=== PATIENT | male | born 1980 | race Two or more races ===

== ENCOUNTER 2016-11-07 20:21 | Emergency (ER) | payer SELFPAY ==
[~2016-11-07] VITALS: Ht 175.3 cm; Wt 127.0 kg
[2016-11-07] MEDS ORDERED: cloNIDine HCL 0.1 MG TAB ONE (20:27)
[2016-11-07] MEDS ORDERED: cloNIDine HCL 0.1 MG TAB PO ONE (20:45)
[2016-11-07 23:56] VITALS: BP 145/94
[2016-11-08] MEDS ORDERED: IBUPROFEN 600 MG TAB PO ONE
[2016-11-08] MEDS ORDERED: CYCLOBENZAPRINE HCL 10 MG TAB PO ONE
== END 2016-11-08 00:38 | disposition home or self-care (01) ==
LOC: EDBD 20:21 → ER 20:25
DX: S40.012A Contusion of left shoulder, initial encounter (principal); R51 Headache; V49.49XA Driver injured in collision with other motor vehicles in traffic accident, initial encounter; Y93.89 Activity, other specified; Y99.8 Other external cause status; Y92.410 Unspecified street and highway as the place of occurrence of the external cause
CPT/HCPCS: 70450; 72125; 73030

== ENCOUNTER 2018-05-04 17:04 | Emergency (ER) | payer BC, OTHER ==
[~2018-05-04] VITALS: Ht 177.8 cm; Wt 136.1 kg
[2018-05-04] MEDS ORDERED: BACLOFEN 10 MG TAB PO ONE (19:15)
[2018-05-04 19:25] VITALS: BP 168/84
[2018-05-04] MEDS ORDERED: HYDROcodone-ACET 10/325MG TAB PO ONE (19:30)
== END 2018-05-04 19:55 | disposition home or self-care (01) ==
LOC: EDBD 17:04 → ER 17:04
DX: M54.2 Cervicalgia (principal); M54.5 Low back pain; R51 Headache; M62.838 Other muscle spasm; V49.9XXA Car occupant (driver) (passenger) injured in unspecified traffic accident, initial encounter; Y93.89 Activity, other specified; Y92.89 Other specified places as the place of occurrence of the external cause; Y99.8 Other external cause status
CPT/HCPCS: 72040; 72100